=== PATIENT | male | born 1970 | race Caucasian/White ===

== ENCOUNTER 2019-02-14 08:43 | Emergency (ER) | payer BC ==
[2019-02-14 09:31] LABS: ABS Eosinophils 0.1 10^3/ul (0-0.6); ABS Lymphocytes 2.1 10^3/ul (1.0-4.8); ABS Monocytes 0.6 10^3/ul (0-0.8); ABS Neutrophils 6.1 10^3/ul (1.5-7.7); Eosinophil % 0.9 %; Hematocrit 45 % (42-52); Hemoglobin 15.2 g/dL (14.0-18.0); Lymphocyte % 23.5 %; Mean Corpuscular HGB Conc 34 g/dL (31-36); Mean Corpuscular Hemoglobin 29 pg (27-31); Mean Corpuscular Volume 86 fL (80-94); Mean Platelet Volume 7.6 fL (7.4-10.4); Nucleated Red Blood Cells % 0.1; Platelet Count 180 10^3/uL (150-450); Red Blood Count 5.19 10^6 /uL (4.18-5.48); Red Cell Distribution Width 14 % (10.5-15); White Blood Count 8.9 10^3/uL (3.5-10.8)
--- NOTE | 2019-02-14 09:31 | ED ---
Abdominal Pain/Female - HPI Summary HPI Summary: Pt. is a 49 y.o male who presents to the ER for right upper abd. pain that started this morning. Pt. states he woke up from sleep with severe pain to right upper abd. Pain is slowly improving. He denies associated sxs of CP, SOB, N/V, diarrhea, constipation, cough. He notices increase in flatuance. Pt. states he has similar pain about 2-3 months ago and went to [place] [facility] and had a GB u/s pt. states was negative. No modifying factors. Sxs are moderate in severity. Denies past medical hx. Surgical hx of hernia repair. Pt. notes he was having subjective fever and chills last night. - History of Current Complaint Chief Complaint: EDAbdPain Stated Complaint: UPPER RT ABD PAIN PER PT Time Seen by Provider: 02/14/19 08:52 Hx Obtained From: Patient Pain Intensity: 5 Allergies/Adverse Reactions: Allergies Allergy/AdvReac Type Severity Reaction Status Date / Time moxifloxacin Allergy Hives Verified 02/14/19 08:58 PMH/Surg Hx/FS Hx/Imm Hx Previously Healthy: Yes Endocrine/Hematology History: Denies: Hx Anticoagulant Therapy, Hx Diabetes, Hx Thyroid Disease Cardiovascular History: Denies: Hx Congestive Heart Failure, Hx Deep Vein Thrombosis, Hx Hypertension , Hx Myocardial Infarction, Hx Pacemaker/ICD Respiratory History: Denies: Hx Asthma, Hx Chronic Obstructive Pulmonary Disease (COPD), Hx Lung Cancer, Hx Pneumonia, Hx Pulmonary Embolism GI History: Denies: Hx Gall Bladder Disease, Hx Gastrointestinal Bleed, Hx Ulcer, Hx Urosepsis History: Denies: Hx Kidney Stones, Hx Renal Disease Neurological History: Denies: Hx Dementia, Hx Migraine, Hx Seizures, Hx Transient Ischemic Attacks (TIA) Psychiatric History: Denies: Hx Anxiety, Hx Depression, Hx Schizophrenia, Hx Bipolar Disorder - Surgical History Surgery Procedure, Year, and Place: HERNIA, WISDOM TEETH, LEFT INDEX FINGER TIP REPAIR Infectious Disease History: No Infectious Disease History: Denies: Hx Clostridium Difficile, Hx Hepatitis, Hx Human Immunodeficiency Virus (HIV), Hx of Known/Suspected MRSA, Hx Shingles, Hx Tuberculosis, Hx Known/ Suspected VRE, Hx Known/Suspected VRSA, History Other Infectious Disease, Traveled Outside the [place] in Last 30 Days - Family History Known Family History: Positive: Hypertension, Diabetes - Social History Alcohol Use: Rare Substance Use Type: Reports: None Smoking Status (MU): Never Smoked Tobacco Have You Smoked in the Last Year: No Review of Systems Positive: Fever, Chills Eyes: Negative ENT: Negative Cardiovascular: Negative Negative: Palpitations, Chest Pain Respiratory: Negative Negative: Shortness Of Breath, Cough Positive: Abdominal Pain. Negative: Vomiting, Diarrhea, Nausea Genitourinary: Negative Negative: dysuria, discharge, flank pain Skin: Negative Neurological: Negative All Other Systems Reviewed And Are Negative: Yes Physical Exam Triage Information Reviewed: Yes Vital Signs On Initial Exam: Initial Vitals Temp Pulse Resp BP Pulse Ox 98.3 F 79 16 157/93 95 02/14/19 08:44 02/14/19 08:44 02/14/19 08:44 02/14/19 08:44 02/14/19 08:44 Vital Signs Reviewed: Yes Appearance: Positive: Well-Appearing - Pt. sitting up in bed in NAD. Skin: Positive: Warm, Dry Head/Face: Positive: Normal Head/Face Inspection Eyes: Positive: Normal, EOMI, MOE Neck: Positive: Supple Respiratory/Lung Sounds: Positive: Clear to Auscultation, Breath Sounds Present. Negative: Rales, Rhonchi, Wheezes Cardiovascular: Positive: Normal, RRR Abdomen Description: Positive: Other: - Obese. Abd. is soft with mild tenderness to right upper outer abd. Negative santiago sign. NO rebound tenderness or guarding. No CVA tenderness bilaterally. Musculoskeletal: Positive: Normal, Strength/ROM Intact Neurological: Positive: Normal, CN Intact II-III Psychiatric: Positive: Affect/Mood Appropriate Diagnostics - Vital Signs Vital Signs Temp Pulse Resp BP Pulse Ox 02/14/19 09:00 65 23 93 02/14/19 08:55 71 16 143/87 95 02/14/19 08:54 74 31 92 02/14/19 08:44 98.3 F 79 16 157/93 95 - Laboratory Result Diagrams: 02/14/19 09:23 02/14/19 09:23 Lab Statement: Any lab studies that have been ordered have been reviewed, and results considered in the medical decision making process. Abdominal Pain Fem Course/Dx - Course Course Of Treatment: Patient presenting with right upper quadrant abdominal pain. Notes similar episode a few months ago and had ultrasound of gallbladder performed without side Hospital which she states is negative. Patient's exam is relatively unremarkable. Patient notes his pain is improving this time. Basic Labs and Urinalysis Ordered. ECG done at 0906 shows a sinus rhythm of 72bpm, normal axis, no ST elevation or depresssion. Blood work and urinalysis are unremarkable. Discussed labs with patient. Discussed further imaging versus outpatient follow-up given ongoing, worsening pain. Patient would prefer to have CT scans on the ER today to rule out mass, infection, other etiologies pain. CT abd./pelvis per radiology: IMPRESSION: FATTY INFILTRATION OF THE LIVER. SMALL RIGHT PLEURAL EFFUSION. CXR then obtained and shows trace pleural effusion on right. Unclear of etiology at this time. Discussed with Dr. Silveira who recommeds outpt. f.u. Suscept this may be source of pt.'s pain. Results discussed with pt. Recommends NSAIDS. to call PCP today for a close f.u apt. for further evaluation. will return to ER for worsening pain, fever, cp, sob, or if concerned. Pt. understands and agrees with plan. - Diagnoses Differential Diagnosis: Positive: Constipation, Diverticulitis, Hepatitis, AL, Pancreatitis, Peptic Ulcer Disease, Renal Colic, Urinary Tract Infection Provider Diagnoses: Abdominal pain, Pleural effusion Discharge - Sign-Out/Discharge Documenting (check all that apply): Patient Departure Patient Received Moderate/Deep Sedation with Procedure: No - Discharge Plan Condition: Good Disposition: HOME Patient Education Materials: Pleural Effusion (ED), Acute Abdominal Pain (ED) Referrals: Morgan Hudson MD [Primary Care Provider] - Additional Instructions: Call PCP today to schedule a close follow up appointment for further evaluation of abdominal pain and pleural effusion Recommend ibuprofen for pain as directed Return to ER for increased pain, shortness of breath, chest pain, fever, or if concerned - Billing Disposition and Condition Condition: GOOD Disposition: Home
[2019-02-14 09:50] LABS: Albumin/Globulin Ratio 1.4 (1-3); BUN/Creatinine Ratio 20.7 (8-20); Calcium 9.2 mg/dL (8.6-10.3); EGFR African American 105.8 (>60); EGFR Non-African American 87.4 (>60); Globulin 2.9 g/dL (2-4); Potassium 4.1 mmol/L (3.5-5.0); Total Bilirubin 0.7 mg/dL (0.2-1.0); Total Protein 6.9 g/dL (6.4-8.9)
[2019-02-14] MEDS ORDERED: Iohexol 300* (CONTRAST) 10 ML SDV IV ONE ×2 (11:38→12:09)
[2019-02-14 11:51] LABS: Urine Appearance Clear; Urine Bilirubin Negative (Negative); Urine Blood Negative (Negative); Urine Color Yellow; Urine Glucose Negative (Negative); Urine Ketones Negative (Negative); Urine Nitrite Negative (Negative); Urine Protein Negative (Negative); Urine Specific Gravity 1.018 (1.010-1.030); Urine Urobilinogen Negative (Negative)
[2019-02-14 13:35] VITALS: BP 136/89
== END 2019-02-14 13:34 | disposition home or self-care (01) ==
LOC: ED 08:43
DX: R10.11 Right upper quadrant pain (principal); J90 Pleural effusion, not elsewhere classified; K76.0 Fatty (change of) liver, not elsewhere classified
CPT/HCPCS: 36415; 71046; 74177; 80053; 81003; 83690; 84484; 85025; 93005; 96374; 96375; 99283; Q9967